=== PATIENT | female | born 1975 | race Caucasian/White ===

== ENCOUNTER 2017-04-08 09:19 | Emergency (ER) | payer OTHER, BC ==
[~2017-04-08] VITALS: Ht 182.9 cm; Wt 86.6 kg
[2017-04-08 10:30] LABS: BASO % 0 % (0-3); EOS # 0.1 x10^3/uL (0.0-0.7); EOS % 1 % (0-3); HEMATOCRIT 42.4 % (36.0-47.0); LYMPH # 2.5 x10^3/uL (1.0-4.8); LYMPH % 27 % (24-48); MEAN CORPUSCULAR HEMOGLOBIN 30 pg (25-35); MEAN CORPUSCULAR HGB CONC 35 g/dL (31-37); MEAN CORPUSCULAR VOLUME 85 fL (79-100); MONO # 0.5 x10^3/uL (0.0-1.1); MONO % 6 % (0-9); NEUT % 66 % (31-73); PLATELET COUNT 206 x10^3/uL (140-400); RED BLOOD COUNT 4.97 x10^6/uL (3.50-5.40); RED CELL DISTRIBUTION WIDTH 12.5 % (11.5-14.5); WHITE BLOOD COUNT 9.2 x10^3/uL (4.0-11.0)
[2017-04-08 10:34] LABS: PREG TEST PT QUAL NEGATIVE (NEG)
--- NOTE | 2017-04-08 10:34 | PHYS DOC ---
Past History Past Medical History: Diabetes Past Surgical History: Cholecystectomy, Other Alcohol Use: None Drug Use: None Adult General Chief Complaint Chief Complaint: BODY FLUID EXPOSURE [facility] HPI Patient is a pleasant 41-year-old male with history of diabetes and peripheral neuropathy who has actually fallen in human waste and sewage 2 days ago while at work. She has no complaints other than the exposure. Patient notes and small abrasions on her upper arms that are old and might need a tetanus shot. Denies any pain, denies any signs of infection, denies any shortness of breath abdominal pain or other complaint. Patient was sent here by her work for a screening exam secondary to bodily fluid exposure. 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 Review of Systems Review of Systems Constitutional: Denies fever or chills [] Eyes: Denies change in visual acuity, redness, or eye pain [] HENT: Denies nasal congestion or sore throat [] Respiratory: Denies cough or shortness of breath [] Cardiovascular: No additional information not addressed in HPI [] GI: Denies abdominal pain, nausea, vomiting, bloody stools or diarrhea [] : Denies dysuria or hematuria [] Musculoskeletal: Denies back pain or joint pain [] Integument: Denies rash or skin lesions [] Neurologic: Denies headache, focal weakness or sensory changes [] Endocrine: Denies polyuria or polydipsia [] Allergies Allergies Allergies Coded Allergies Type Severity Reaction Last Updated Verified iodine Allergy Unknown 04/08/17 Yes Physical Exam Physical Exam Constitutional: Well developed, well nourished, no acute distress, non-toxic appearance. [] HENT: Normocephalic, atraumatic, oropharynx moist, Eyes: PERRLA, EOMI, conjunctiva normal, no discharge. [] Neck: Normal range of motion, no tenderness, supple, no stridor. [] Cardiovascular:Heart rate regular rhythm, no murmur [] Lungs & Thorax: Bilateral breath sounds clear to auscultation [] Abdomen: Bowel sounds normal, soft, no tenderness, no masses, no pulsatile masses. [] Skin: Warm, dry, no erythema, no rash. Small abrasions well-healing on the forearms and hands. Nothing new. No signs of infection Back: No tenderness, no CVA tenderness. [] Extremities: No tenderness, no cyanosis, no clubbing, ROM intact, no edema. [] Neurologic: Alert and oriented X 3, normal motor function, normal sensory function, no focal deficits noted. [] Psychologic: Affect normal, judgement normal, mood normal. [] Current Patient Data Vital Signs Vital Signs Date Time Temp Pulse Resp B/P (MAP) Pulse Ox O2 Delivery O2 Flow Rate FiO2 04/08/17 09:37 98.5 105 18 96 Room Air EKG EKG [] Radiology/Procedures Radiology/Procedures [] Course & Med Decision Making Course & Med Decision Making Pertinent Labs and Imaging studies reviewed. (See chart for details) she noted to be mildly tachycardic on arrival also mildly anxious which is resolved with time. Nursing notes been reviewed and agree with above. Patient's exposure is minimal despite being exposed to human urine and feces there is the possibility of exposure to hepatitis and HIV with mucous members exposure. Given the duration of exposure patient had titers of hepatitis A, B, and C completed as well as HIV screening. Patient was encouraged to wash body with soap and water after exposure which she did 2 days ago. At this point in time she is needed no hepatitis vaccination is needed as she's had 2 courses in the last 10 years. 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 [] Dragon Disclaimer Dragon Disclaimer This chart was dictated in whole or in part using Voice Recognition software in a busy, high-work load, and often noisy Emergency Department environment. It may contain unintended and wholly unrecognized errors or omissions. Departure Departure: Impression: Primary Impression: Exposure to blood or body fluid Disposition: HOME, SELF-CARE Condition: IMPROVED Referrals: [facility] (PCP) Patient Instructions: Body Fluid Exposure Additional Instructions: During your possible wrist exposure to hepatitis A, B, and C I would advise that you follow-up with occupational health therapy organization associated with your employment please return for any questions or joint have. Any positive findings on laboratory work will be called in to directly. BRONSON CORREA MD April 08, 2017 10:34
[2017-04-08 10:38] LABS: ALBUMIN 3.3 g/dL (3.4-5.0); DIRECT BILIRUBIN 0.2 mg/dL (0.0-0.2); TOTAL BILIRUBIN 1.2 mg/dL (0.2-1.0); TOTAL PROTEIN 6.7 g/dL (6.4-8.2)
[2017-04-08 10:48] VITALS: BP 150/81
[2017-04-08 21:12] LABS: HCV ANTIBODY <0.1 s/co ratio (0.0-0.9); HEP A IGM ABDY Negative (Negative)
== END 2017-04-08 10:47 | disposition home or self-care (01) ==
LOC: ER 09:19
DX: Z77.21 Contact with and (suspected) exposure to potentially hazardous body fluids (principal); E11.42 Type 2 diabetes mellitus with diabetic polyneuropathy; Z91.041 Radiographic dye allergy status
CPT/HCPCS: 36415; 80074; 80076; 84703; 85027; 86703; 99284

== ENCOUNTER 2020-04-26 18:16 | Emergency (ER) | payer BC ==
[~2020-04-26] VITALS: Ht 182.9 cm; Wt 79.2 kg
--- NOTE | 2020-04-26 18:26 | PHYS DOC ---
Past History Past Medical History: Diabetes Past Surgical History: Cholecystectomy, Other Alcohol Use: None Drug Use: None General Adult EDM: Chief Complaint: MULTIPLE COMPLAINTS HPI: HPI: Patient is a 43-year-old female presenting to the ED with a chief complaint of right foot infection. Patient states that she is following up with wound care clinic and has been on IV antibiotics in the past. Patient states that she was on Levaquin in the past. Patient states that she had an MRI yesterday which showed that there is osteomyelitis that is spreading. Patient was sent into the ER for admission. Patient is a patient of Dr. Beltrán. Patient does admit to being an active smoker. Patient also does have history of diabetes. Currently patient denies fever, chills, nausea or vomiting. Review of Systems: Review of Systems: Constitutional: Denies fever or chills Eyes: Denies change in visual acuity HENT: Denies nasal congestion or sore throat Respiratory: Denies cough or shortness of breath Cardiovascular: Denies chest pain or edema GI: Denies abdominal pain, nausea, vomiting : Denies dysuria Musculoskeletal: Complains of pain and redness to the right foot Neurologic: Denies headache, focal weakness or sensory changes Heart Score: Risk Factors: Risk Factors: DM, Current or recent (<one month) smoker, HTN, HLP, family h istory of CAD, obesity. Risk Scores: Score 0 - 3: 2.5% MACE over next 6 weeks - Discharge Home Score 4 - 6: 20.3% MACE over next 6 weeks - Admit for Clinical Observation Score 7 - 10: 72.7% MACE over next 6 weeks - Early Invasive Strategies Allergies: Allergies: Allergies Coded Allergies Type Severity Reaction Last Updated Verified iodine Allergy Unknown Unknown 03/28/20 Yes Physical Exam: PE: Constitutional: Well developed, well nourished, no acute distress, non-toxic appearance. [] HENT: Normocephalic, atraumatic Eyes: EOMI Neck: Normal range of motion, Supple Cardiovascular: Taachycardia Lungs & Thorax: Bilateral breath sounds clear to auscultation [] Abdomen: Bowel sounds normal, soft, no tenderness Extremities: ROM intact, redness and tenderness to the right foot Neurologic: Alert and oriented X 3 EKG: EKG: [] Radiology/Procedures: Radiology/Procedures: [] Course & Med Decision Making: Course & Med Decision Making Pertinent Labs and Imaging studies reviewed. (See chart for details) Ordered labs, IV fluids Patient most likely has osteomyelitis. Did not order imaging as patient just had an MRI yesterday. IV antibiotics ordered and I will discuss with hospitalist service for admission. Discussed results and plan of care with patient. MRI results show that patient does have multifocal osteomyelitis. Also there is widening appearance of the Lisfranc interval as well as probable abscess between the first and second metatarsals. I discussed case with the hospitalist at [facility]. States that patient needs to be transferred to [place] as we do not have any surgical specialties. We have paged [facility] hospitalist to discuss case with them. Discussed case with Dr. Ramirez who accepts transfer. Tato Disclaimer: Tato Disclaimer: This electronic medical record was generated, in whole or in part, using a voice recognition dictation system. Departure Departure: Impression: Primary Impression: Osteomyelitis of foot, acute Disposition: 05 TRANSFER OTHER Condition: GOOD Referrals: PARMINDER ANTON MD (PCP) HERNIQUE LAMBERT DO Apr 26, 2020 18:26
[2020-04-26] MEDS ORDERED: IV NORMAL SALINE 1,000ML 1,000 ML IV ONE (18:45)
[2020-04-26 19:08] LABS: BASO # 0.1 x10^3/uL (0.0-0.2); BASO % 1 % (0-3); EOS # 0.1 x10^3/uL (0.0-0.7); EOS % 1 % (0-3); HEMATOCRIT 42.3 % (36.0-47.0); HEMOGLOBIN 14.5 g/dL (12.0-15.5); LYMPH # 2.3 x10^3/uL (1.0-4.8); LYMPH % 36 % (24-48); MEAN CORPUSCULAR HEMOGLOBIN 30 pg (25-35); MEAN CORPUSCULAR HGB CONC 34 g/dL (31-37); MEAN CORPUSCULAR VOLUME 88 fL (79-100); MONO # 0.5 x10^3/uL (0.0-1.1); MONO % 7 % (0-9); NEUT # 3.6 x10^3uL (1.8-7.7); NEUT % 55 % (31-73); PLATELET COUNT 281 x10^3/uL (140-400); RED CELL DISTRIBUTION WIDTH 12.4 % (11.5-14.5); WHITE BLOOD COUNT 6.6 x10^3/uL (4.0-11.0)
[2020-04-26 19:18] LABS: CALCIUM 9.3 mg/dL (8.5-10.1); CREATININE 0.8 mg/dL (0.6-1.0); GFR 77.9; POTASSIUM 4.2 mmol/L (3.5-5.1)
[2020-04-26 19:24] LABS: ALBUMIN 3.6 g/dL (3.4-5.0); ALBUMIN/GLOBULIN RATIO 0.9 (1.0-1.7); C REACTIVE PROTEIN 1.5 mg/L (0-3.3); TOTAL BILIRUBIN 0.6 mg/dL (0.2-1.0); TOTAL PROTEIN 7.7 g/dL (6.4-8.2)
[2020-04-26 21:02] VITALS: BP 124/73
[2020-04-26] MEDS ORDERED: PIP/TAZO PER PHARMACY MC PRN (22:45)
[2020-04-26] MEDS ORDERED: IV NORMAL SALINE 50ML 50 ML ONE (22:48)
[2020-04-26] MEDS ORDERED: PIPERACILLIN/TAZOBACTAM 3.375 GM VIAL IV ONE (22:48)
[2020-04-26] MEDS ORDERED: PIPERACILLIN/TAZOBACTAM 3.375 GM in IV NORMAL SALINE 50ML 50 ML IV ONE (23:00)
== END 2020-04-27 00:51 | disposition short-term general hospital (02) ==
LOC: ER 18:16
DX: M86.171 Other acute osteomyelitis, right ankle and foot (principal); E11.9 Type 2 diabetes mellitus without complications; Z88.8 Allergy status to other drugs, medicaments and biological substances
CPT/HCPCS: 36415; 80053; 85025; 86140; 96365; 99285; J2543; J7030

== ENCOUNTER 2020-05-14 11:15 | Inpatient (IN) | payer BC ==
[~2020-05-14] VITALS: Ht 182.9 cm; Wt 82.5 kg
[2020-05-14] MEDS ORDERED: PROCHLORPERAZINE 10 MG/2 ML VIAL. IV PRN (12:15)
[2020-05-14] MEDS ORDERED: DULO30CA2 PO (13:19)
[2020-05-14] MEDS ORDERED: ALPR0.5T6 PO (13:19)
[2020-05-14] MEDS ORDERED: TRAZ-120 PO (13:19)
[2020-05-14] MEDS ORDERED: ASPI-612 PO (13:20)
[2020-05-14] MEDS ORDERED: SITA1TAB7 PO (13:20)
[2020-05-14] MEDS: PROCHLORPERAZINE 10 MG/2 ML VIAL. IV PRN (14:31)
[2020-05-14] MEDS: IV NORMAL SALINE 1,000ML 1,000 ML IV SCH (14:32)
[2020-05-14 15:11] VITALS: BP 150/85
[2020-05-14 19:12] VITALS: BP 123/61
[2020-05-14] MEDS: ALPRAZolam 0.5 MG TABLET PO SCH (21:28)
[2020-05-14] MEDS: LISINOPRIL 10 MG TABLET PO SCH (21:28)
--- NOTE | 2020-05-14 22:06 | RAD ---
ACUTE ABDOMEN SERIES INDICATION: Reason: abd pain nausea vomiting / Spl. Instructions: / History: . COMPARISON STUDY: None. FINDINGS: Lungs: Normal lung volume. No pulmonary mass or consolidation. The tracheobronchial tree and hilar structures are normal. Pleura: No pleural effusion or pneumothorax. Heart and Mediastinum: The cardiomediastinal silhouette is normal. The great vessels of the thorax are normal. Abdomen: Nonobstructive bowel gas pattern. No free air. Mild colonic stool burden. IMPRESSION: Nonobstructive bowel gas pattern. No focal airspace disease. Electronically signed by: Daniel Fuller MD (05/14/2020 10:03 PM) [id number]
[2020-05-14 22:55] VITALS: BP 119/76
--- NOTE | 2020-05-14 22:57 | HP ---
ADMIT DATE: 05/14/2020 HISTORY OF PRESENT ILLNESS: A 44-year-old female who has recently been treated for osteomyelitis, possible Charcot joint, has severe diabetes. The patient, however, came in for some antibiotic therapy and was noted to have severe diarrhea, nausea, vomiting; uncontrolled nausea, unresponsive to oral Zofran. The patient in turn was doubled over in pain and as a result of this; she was admitted to the hospital for further evaluation and treatment of her nausea, vomiting, dehydration, diarrhea, abdominal discomfort. PAST MEDICAL HISTORY: As noted, she has been treated for diabetes as well as osteomyelitis of the right foot, possible Charcot joint. MEDICATIONS: Include aspirin 81, duloxetine, Cymbalta, trazodone 50, Xanax 0.25 and Janumet 50/500. ALLERGIES: IODINE. FAMILY HISTORY: Unremarkable. SOCIAL HISTORY: The patient has about a [id number] history of smoking. She has been encouraged numerous times to stop smoking. The patient also denies alcohol or drug use. REVIEW OF SYSTEMS: Outside of what was stated in the HPI, denies chest pain, shortness of breath. Denies abdominal pain except as otherwise noted here presently. The patient has no problem with her bladder, but does have severe diarrhea, shooting explosive type diarrhea. PHYSICAL EXAMINATION: GENERAL: This is a very pleasant female, except she is in extreme pain and discomfort, grimacing, holding her gut. VITAL SIGNS: Blood pressure 150/85, pulse 120, temperature 98.2, pulse ox 98. HEENT: The patient's head was atraumatic, normocephalic. Eyes: PERRLA without jaundice. The mouth and throat were normal except for dry mucous membranes. NECK: Supple, without JVD, carotid bruits or thyromegaly. LUNGS: Diminished throughout, poor movement of air. CARDIOVASCULAR: Regular sinus rhythm. ABDOMEN: Diffusely tender in the epigastric area. No rebounding, no guarding. Positive bowel sounds. EXTREMITIES: No clubbing, cyanosis, nor edema. NEUROLOGIC: The patient was alert and oriented x 3. LABORATORY DATA: The white count was elevated to 13,000. Other labs are still pending. C. diff ordered, fluids given. IMPRESSION: Nausea, vomiting, dehydration, type 2 diabetes, failure of outpatient therapy, possible osteomyelitis versus Charcot joint of the right foot, poorly controlled diabetes. PLAN: The patient will be continued to be monitored carefully here in the hospital, given IV fluids, IV antiemetics since oral antiemetics did not work, continue to monitor her foot and make further evaluation as indicated. PARMINDER ANTON MD DR: ARI/ursula JOB#: [id number] / [id number]
[2020-05-15] MEDS: IV NORMAL SALINE 1,000ML 1,000 ML IV SCH ×2 (00:41→06:09)
[2020-05-15 05:28] VITALS: BP 142/94
[2020-05-15] MEDS: MORPHINE SULFATE 2 MG/ML DISP.SYRIN. IV PRN ×2 (05:35→08:45)
[2020-05-15 08:21] LABS: BASO % 1 % (0-3); EOS % 1 % (0-3); HEMATOCRIT 34.1 % (36.0-47.0); HEMOGLOBIN 11.8 g/dL (12.0-15.5); LYMPH # 2.2 x10^3/uL (1.0-4.8); LYMPH % 27 % (24-48); MEAN CORPUSCULAR HEMOGLOBIN 30 pg (25-35); MEAN CORPUSCULAR HGB CONC 35 g/dL (31-37); MEAN CORPUSCULAR VOLUME 87 fL (79-100); MONO # 0.6 x10^3/uL (0.0-1.1); MONO % 7 % (0-9); NEUT # 5.3 x10^3uL (1.8-7.7); NEUT % 64 % (31-73); PLATELET COUNT 241 x10^3/uL (140-400); RED BLOOD COUNT 3.91 x10^6/uL (3.50-5.40); RED CELL DISTRIBUTION WIDTH 12.8 % (11.5-14.5); WHITE BLOOD COUNT 8.1 x10^3/uL (4.0-11.0)
[2020-05-15 08:26] LABS: CALCIUM 7.8 mg/dL (8.5-10.1); CREATININE 0.5 mg/dL (0.6-1.0); POTASSIUM 3.2 mmol/L (3.5-5.1)
[2020-05-15] MEDS: DULoxetine HCL 30 MG CAPSULE.DR PO SCH (08:41)
[2020-05-15] MEDS: ASPIRIN ENTERIC COATED 81 MG TABLET.DR. PO SCH (08:41)
[2020-05-15] MEDS: ALPRAZolam 0.5 MG TABLET PO SCH ×3 (08:41→20:58)
[2020-05-15] MEDS: LISINOPRIL 10 MG TABLET PO SCH (08:42)
[2020-05-15] MEDS: PROCHLORPERAZINE 10 MG/2 ML VIAL. IV PRN (08:45)
[2020-05-15 11:00] VITALS: BP 132/87
[2020-05-15] MEDS ORDERED: ELECTROLYTE (NON-ICU) PROTOCOL MC PRN (14:15)
[2020-05-15] MEDS ORDERED: DEXTROSE 50% 25 GM / 50ML DISP.SYRIN. IV PRN (14:30)
[2020-05-15] MEDS ORDERED: ACETAMINOPHEN 500 MG TABLET PO PRN (14:30)
[2020-05-15] MEDS ORDERED: ZOLPIDEM 5 MG TABLET. PO PRN (14:30)
[2020-05-15 14:36] LABS: ALBUMIN 2.8 g/dL (3.4-5.0); DIRECT BILIRUBIN 0.3 mg/dL (0.0-0.2)
[2020-05-15 14:38] LABS: TOTAL BILIRUBIN 2.6 mg/dL (0.2-1.0)
[2020-05-15 15:21] VITALS: BP 127/80
[2020-05-15] MEDS: INSULIN LISPRO 300 UNITS/3 ML VIAL. SQ SCH (17:00)
--- NOTE | 2020-05-15 18:01 | PN ---
DATE: SUBJECTIVE: A 44-year-old female with history of severe nausea, vomiting and diarrhea, acute abdominal pain, severe poorly controlled diabetes, possible osteomyelitis of the right foot which is Charcot. She has had osteomyelitis fissure. Her CRP is still elevated. She is doing better. We will just have her on clear liquids, IV fluids and adjusting her medications accordingly. OBJECTIVE: VITAL SIGNS: Otherwise, her blood pressure is 130/80, respiratory rate 18, pulse 86, afebrile, 98% on room air. GENERAL: The patient is alert and oriented. LUNGS: Clear. ABDOMEN: Diffuse tenderness in the epigastric area as well as noted in the suprapubic area as well. The patient's UA is pending. LABORATORY DATA: Did show a total bilirubin of 2.6, direct bilirubin of 0.3. Calcium low at 7.3, albumin low at 2.8, potassium low at 3.2, glucose is better than average for her approximately 130. Otherwise, lungs clear and stable there. PLAN: We will go ahead and get an abdominal ultrasound. We will put her on some electrolyte replacement. Continue to monitor this bilirubin. Monitor her diarrhea. IMPRESSION: Abdominal pain, dehydration, possible gastroparesis, possible C. difficile colitis, elevated liver enzymes, severe protein malnutrition, hyperbilirubinemia, elevated C-reactive protein, recent osteomyelitis of the right foot, Charcot joint of the right foot. PLAN: As above. PARMINDER ANTON MD DR: ARI/ursula JOB#: [id number] / [id number]
[2020-05-15 19:13] VITALS: BP 121/75
[2020-05-15 20:47] LABS: BACTERIA,URINE 0 /HPF (0-FEW); BILIRUBIN,URINE NEG (NEG); CLARITY,URINE CLEAR; COLOR,URINE YELLOW; GLUCOSE,URINE NEG (NEG); NITRITE,URINE NEG (NEG); RBC,URINE 0 /HPF (0-2); SQUAMOUS EPITHELIAL CELL,UR MANY /LPF; WBC,URINE OCC /HPF (0-4)
[2020-05-15 20:48] LABS: YEAST,URINE PRESENT /HPF
[2020-05-15 22:11] VITALS: BP 121/71
[2020-05-16 01:06] LABS: HEMOGLOBIN A1C 8.5 % (4.8-5.6)
[2020-05-16 05:33] VITALS: BP 123/75
[2020-05-16] MEDS: MORPHINE SULFATE 2 MG/ML DISP.SYRIN. IV PRN ×3 (06:08→23:27)
[2020-05-16] MEDS ORDERED: POTASSIUM CHLORIDE 20 MEQ TABLET.ER. PO ONE (07:30)
[2020-05-16] MEDS: INSULIN LISPRO 300 UNITS/3 ML VIAL. SQ SCH ×3 (08:00→16:27)
[2020-05-16] MEDS: ALPRAZolam 0.5 MG TABLET PO SCH ×3 (08:08→21:10)
[2020-05-16] MEDS: ASPIRIN ENTERIC COATED 81 MG TABLET.DR. PO SCH (08:08)
[2020-05-16] MEDS: LISINOPRIL 10 MG TABLET PO SCH (08:08)
[2020-05-16] MEDS: DULoxetine HCL 30 MG CAPSULE.DR PO SCH (08:08)
[2020-05-16] MEDS: PROCHLORPERAZINE 10 MG/2 ML VIAL. IV PRN (08:20)
--- NOTE | 2020-05-16 08:51 | RAD ---
ABDOMEN COMPLETE History: Elevated liver function tests, abdominal pain and nausea Comparison: None. Findings: Multiple sonographic images of the abdomen are submitted. There is no abnormality of the visualized pancreas. Abdominal aortic caliber is within normal limits up to 2.1 cm. There is segmental visualization of the inferior vena cava. No focal hepatic lesion is demonstrated. Right lobe of the liver measured 18.7 cm longitudinal. Hepatic echogenicity can be considered within normal limits. Right kidney measured 15 x 5.1 x 7.4 cm, no hydronephrosis. Common bile duct is somewhat prominent up to 0.9 cm although there has been cholecystectomy. Spleen measured up to 13.2 x 4.7 x 5.8 cm. Left kidney measured 14.9 x 5.6 x 6.6 cm, no hydronephrosis. Impression: 1. Common bile duct is somewhat prominent although sometimes can be normally seen after cholecystectomy. There is bilateral nephromegaly, no hydronephrosis. Electronically signed by: Daniel Thomson MD (05/16/2020 8:48 AM) [id number]
--- NOTE | 2020-05-16 09:38 | PN ---
DATE: SUBJECTIVE: A 44-year-old female here with nausea, vomiting and severe diarrhea, dehydration, elevated hyperbilirubinemia. The patient's abdominal ultrasound shows some enlargement of the common bile duct, otherwise unremarkable. Total bilirubin 2.6, direct bilirubin 0.3. Liver enzymes are normal. Albumin low at 2.8, potassium 3.2. Blood sugars under better control. The patient is still holding her belly with pain. We will go ahead and do a CAT scan and see if that will demonstrate why she is having so much abdominal pain. Abdominal ultrasound did not provide much in the way of answers. OBJECTIVE: LUNGS: Clear. CARDIOVASCULAR: Stable. ABDOMEN: Soft, diffuse tenderness in the right upper quadrant area, slight guarding. Otherwise, the belly was soft, no masses were noted. There was some tenderness in the suprapubic area as well. Again, no guarding, no masses noted. The patient's urine was unremarkable as well. IMPRESSION: Abdominal pain, right upper quadrant and lower pelvic area; hyperbilirubinemia; history of osteomyelitis; possible claudication or Charcot joint of the right foot; type 2 diabetes, poorly controlled. PARMINDER ANTON MD DR: ARI/ursula JOB#: [id number] / [id number]
[2020-05-16 10:14] VITALS: BP 129/81
--- NOTE | 2020-05-16 10:58 | RAD ---
EXAM: Abdomen and pelvis CT without intravenous contrast. HISTORY: Pain. TECHNIQUE: Computed tomographic images of the abdomen and pelvis were obtained without contrast. Multiplanar reformatting was performed. *One or more of the following individualized dose reduction techniques were utilized for this examination: 1. Automated exposure control. 2. Adjustment of the mA and/or kV according to patient size. 3. Use of iterative reconstruction technique. COMPARISON: None. FINDINGS: Evaluation of the lower thorax is unremarkable. No hepatic lesion is seen. The gallbladder is surgically absent. The pancreas is unremarkable. There is slight nodular thickening of the left adrenal gland or a small left adrenal adenoma. There is no hydronephrosis. There is no nephrolithiasis. There is no appendicitis. There is no bowel obstruction. There is colonic diverticulosis. There is focal fatty stranding involving the proximal to mid sigmoid colon, suggesting acute diverticulitis. No abscess or perforation is seen. The aorta is normal in caliber. There is no lymphadenopathy. The urinary bladder, uterus and right ovary are unremarkable. There is a suspected 1.3 cm physiologic dominant left ovarian follicle. There is degenerative change involving the spine. There is no suspicious osseous lesion. IMPRESSION: Colonic diverticulosis with focal fatty stranding at the junction of the proximal and mid sigmoid colon suggesting acute diverticulitis. No abscess or free air is seen. Electronically signed by: Gianna Caldwell MD (05/16/2020 10:55 AM) [id number]
--- NOTE | 2020-05-16 13:55 | RAD ---
EXAM: Right lower extremity arterial Doppler sonogram. HISTORY: Right lower extremity ulcer. TECHNIQUE: Beltrán scale and color Doppler sonographic imaging of the right lower extremity arteries with spectral waveform analysis was performed. COMPARISON: None. FINDINGS: There are normal peak systolic velocities and triphasic waveforms throughout the right lower extremity arteries. No hemodynamically significant stenosis or occlusion is seen. IMPRESSION: Normal right lower extremity arterial Doppler sonogram. Electronically signed by: Gianna Caldwell MD (05/16/2020 1:52 PM) [id number]
[2020-05-16 15:38] VITALS: BP 136/85
[2020-05-16 19:43] VITALS: BP 132/79
[2020-05-16] MEDS: LACTOBACILLUS RHAMNOSUS GG 1 CAPSULE. PO SCH (21:10)
[2020-05-16 23:23] VITALS: BP 124/79
[2020-05-17] MEDS: traZODone 50 MG TABLET. PO PRN ×2 (00:21→21:44)
[2020-05-17] MEDS: MORPHINE SULFATE 2 MG/ML DISP.SYRIN. IV PRN ×2 (05:23→22:54)
[2020-05-17 05:33] VITALS: BP 118/77
[2020-05-17 06:27] LABS: CALCIUM 8.3 mg/dL (8.5-10.1); CREATININE 0.5 mg/dL (0.6-1.0); POTASSIUM 3.4 mmol/L (3.5-5.1)
[2020-05-17] MEDS: INSULIN LISPRO 300 UNITS/3 ML VIAL. SQ SCH ×3 (08:00→17:00)
[2020-05-17] MEDS: ALPRAZolam 0.5 MG TABLET PO SCH ×3 (08:14→21:44)
[2020-05-17] MEDS: LACTOBACILLUS RHAMNOSUS GG 1 CAPSULE. PO SCH ×2 (08:15→21:44)
[2020-05-17] MEDS: DULoxetine HCL 30 MG CAPSULE.DR PO SCH (08:15)
[2020-05-17] MEDS: ASPIRIN ENTERIC COATED 81 MG TABLET.DR. PO SCH (08:16)
[2020-05-17] MEDS: LISINOPRIL 10 MG TABLET PO SCH (08:16)
--- NOTE | 2020-05-17 09:27 | PN ---
DATE: SUBJECTIVE: The patient came in with nausea and vomiting. The patient is being treated for possible osteomyelitis with daptomycin 6 mg daily and Invanz [address] Dietrich. The patient, however, developed diverticulitis and has had good relief with Levaquin and Flagyl regimen. In the meantime, her other antibiotics have been stopped and that in turn the right foot appears to be more swollen and red today, so sugars are down. C. diff was negative. She is still having some diarrhea. We will discuss with pharmacy to determine the best course here for IV antibiotic therapy. I would like to restart her on either the daptomycin or Invanz and discontinue one of the other antibiotics, but since she was already on those and developed diverticulitis, it is somewhat of a conundrum there. PHYSICAL EXAMINATION: VITAL SIGNS: Blood pressure 120/70, respiratory rate 18, pulse 60, afebrile. GENERAL: The patient is alert and oriented. LUNGS: Clear. CARDIOVASCULAR: Stable. ABDOMEN: Diffuse tenderness in the lower suprapubic area and left lower quadrant area, slight guarding, no rebounding. Positive bowel sounds, no hepatosplenomegaly. IMPRESSION: Diverticulitis, osteomyelitis of the right foot, diarrhea. Continue to monitor accordingly. PARMINDER ANTON MD DR: ARI/ursula JOB#: [id number] / [id number]
[2020-05-17 10:38] VITALS: BP 129/83
[2020-05-17 16:55] VITALS: BP 144/87
[2020-05-17 19:32] VITALS: BP 128/82
[2020-05-18 06:03] LABS: BASO % 1 % (0-3); EOS # 0.2 x10^3/uL (0.0-0.7); EOS % 3 % (0-3); HEMATOCRIT 35.9 % (36.0-47.0); HEMOGLOBIN 12.3 g/dL (12.0-15.5); LYMPH # 2.2 x10^3/uL (1.0-4.8); LYMPH % 32 % (24-48); MEAN CORPUSCULAR HEMOGLOBIN 30 pg (25-35); MEAN CORPUSCULAR HGB CONC 34 g/dL (31-37); MEAN CORPUSCULAR VOLUME 87 fL (79-100); MONO # 0.5 x10^3/uL (0.0-1.1); MONO % 7 % (0-9); NEUT % 58 % (31-73); PLATELET COUNT 254 x10^3/uL (140-400); RED BLOOD COUNT 4.13 x10^6/uL (3.50-5.40); RED CELL DISTRIBUTION WIDTH 12.8 % (11.5-14.5); WHITE BLOOD COUNT 6.9 x10^3/uL (4.0-11.0)
[2020-05-18 06:41] VITALS: BP 144/80
[2020-05-18] MEDS: DULoxetine HCL 30 MG CAPSULE.DR PO SCH (07:55)
[2020-05-18] MEDS: LISINOPRIL 10 MG TABLET PO SCH (07:56)
[2020-05-18] MEDS: LACTOBACILLUS RHAMNOSUS GG 1 CAPSULE. PO SCH (07:56)
[2020-05-18] MEDS: ASPIRIN ENTERIC COATED 81 MG TABLET.DR. PO SCH (07:56)
[2020-05-18] MEDS: ALPRAZolam 0.5 MG TABLET PO SCH (07:56)
[2020-05-18] MEDS: INSULIN LISPRO 300 UNITS/3 ML VIAL. SQ SCH (08:02)
[2020-05-18 10:16] VITALS: BP 135/79
[2020-05-18] MEDS ORDERED: METR-34 PO (11:20)
[2020-05-18] MEDS ORDERED: LISI10TA2 PO (11:20)
--- NOTE | 2020-05-18 13:03 | DS ---
DATE OF DISCHARGE: HOSPITAL COURSE: The patient was coming in to get IV antibiotic therapy, daptomycin and Invanz for osteomyelitis of her right foot; however, when she was here she began to have severe nausea, vomiting and abdominal pain. She was admitted and workup demonstrated the patient had diverticulitis, so we started her on Levaquin and Flagyl. She made good progress with the diverticulitis. She will continue on Flagyl. She is to see Dr. Dietrich, her Infectious Disease doctor for the osteomyelitis and control of that; however, the patient is having trouble with her blood sugars. She is a diabetic. She is not watching her diet very well. Her A1c has been 8-9 or higher and obviously this is contributing to her vascular problems as well. She is also to see Orthopedics as well as a bone specialist of the feet. She may have Charcot joint versus osteomyelitis or possibly both for that matter. The patient will be discharged home. She will follow up with her Infectious Disease doctor and also Dr. Spann for her feet. She needs tight control of her diabetes and we will continue to monitor on all those elements as well. IMPRESSION: Diverticulitis, osteomyelitis, nausea, vomiting, dehydration. She was unable to keep oral medications down when she first came in and that is why she was admitted. We will continue to monitor her as an outpatient and ____ to keep up with her other appointments. She should be on a tight diabetic diet, marked control of her situation there with all her other medical issues. PARMINDER ANTON MD DR: ARI/ursula JOB#: [id number] / [id number]
== END 2020-05-18 11:55 | disposition home or self-care (01) | DRG 391 ==
LOC: 1 SOUTH 11:15
PROVIDERS: ADMIT Family Medicine; ATTEND Family Medicine
DX: K57.92 Diverticulitis of intestine, part unspecified, without perforation or abscess without bleeding (principal); E43 Unspecified severe protein-calorie malnutrition; M86.8X7 Other osteomyelitis, ankle and foot; R17 Unspecified jaundice; E11.610 Type 2 diabetes mellitus with diabetic neuropathic arthropathy; E11.69 Type 2 diabetes mellitus with other specified complication; E86.0 Dehydration; E11.65 Type 2 diabetes mellitus with hyperglycemia; Z87.891 Personal history of nicotine dependence; Z91.041 Radiographic dye allergy status; Z79.82 Long term (current) use of aspirin; Z79.899 Other long term (current) drug therapy; Z68.24 Body mass index [BMI] 24.0-24.9, adult
CPT/HCPCS: 36415; 74022; 74176; 76700; 80048; 80076; 81001; 82947; 83036; 85025; 86140; 87493; 93926; J0780; J1815; J1956; J2270; J3490; J7030

== ENCOUNTER → 2020-05-25 | Outpatient (CLI) | payer BC ==
[~2020-05-25] MED LIST: ALPR0.5T6 PO; ASPI-612 PO; DULO30CA2 PO; LISI10TA2 PO; METR-34 PO; SITA1TAB7 PO; TRAZ-120 PO
[2020-05-25 16:52] VITALS: BP 117/85
--- NOTE | 2020-05-25 16:54 | NUR ---
Pt amb to unit. Pt has labs ordered from her ortho doctor. Picc flushed with 20 cc NS then 10cc pulled back and wasted and blood drawn. Labs will be sent to ordering doctor. Infusion running with ease.
[2020-05-25 16:58] LABS: BASO # 0.1 x10^3/uL (0.0-0.2); BASO % 1 % (0-3); EOS # 0.2 x10^3/uL (0.0-0.7); EOS % 2 % (0-3); HEMATOCRIT 40.7 % (36.0-47.0); LYMPH # 2.7 x10^3/uL (1.0-4.8); LYMPH % 30 % (24-48); MEAN CORPUSCULAR HEMOGLOBIN 30 pg (25-35); MEAN CORPUSCULAR HGB CONC 34 g/dL (31-37); MEAN CORPUSCULAR VOLUME 87 fL (79-100); MONO # 0.7 x10^3/uL (0.0-1.1); MONO % 8 % (0-9); NEUT # 5.4 x10^3uL (1.8-7.7); NEUT % 60 % (31-73); PLATELET COUNT 242 x10^3/uL (140-400); RED BLOOD COUNT 4.66 x10^6/uL (3.50-5.40)
== END ==
LOC: LAB 16:14
PROVIDERS: ATTEND Orthopaedic Surgery Foot and Ankle Surgery
DX: M25.571 Pain in right ankle and joints of right foot (principal); R26.2 Difficulty in walking, not elsewhere classified; M14.671 Charcot's joint, right ankle and foot
CPT/HCPCS: 36415; 82306; 85025; 86140

== ENCOUNTER 2020-06-23 23:54 | Inpatient (IN) | payer BC ==
[~2020-06-23] VITALS: Ht 182.9 cm; Wt 83.2 kg
[~2020-06-23 23:54] MED LIST changes: -ASPI-612 PO; +ASPI-889 PO
--- NOTE | 2020-06-24 00:25 | PHYS DOC ---
Past History Past Medical History: Diabetes, Hypertension Past Surgical History: Cholecystectomy, Other Alcohol Use: None Drug Use: None General Adult EDM: Chief Complaint: ABDOMINAL PAIN HPI: HPI: Patient is a 44-year-old female who presents with 2 days of epigastric pain and nausea and vomiting. Had some diarrhea with the vomiting. Patient denies any measurable fever. Patient has crampy abdominal pain starts in the umbilicus and radiates upward. Epigastric area. Pain 8 out of 10 in intensity and worse with eating and sharp and stabbing. Patient was admitted for similar symptoms last month. Review of Systems: Review of Systems: Constitutional: Denies fever or chills Eyes: Denies change in visual acuity HENT: Denies nasal congestion or sore throat Respiratory: Denies cough or shortness of breath Cardiovascular: Denies chest pain or edema GI: Complains of abdominal pain, nausea, vomiting, or diarrhea : Denies dysuria Musculoskeletal: Denies back pain or joint pain Integument: Denies rash Neurologic: Denies headache, focal weakness or sensory changes Endocrine: Denies polyuria or polydipsia Lymphatic: Denies swollen glands Psychiatric: Denies depression or anxiety Heart Score: Risk Factors: Risk Factors: DM, Current or recent (<one month) smoker, HTN, HLP, family history of CAD, obesity. Risk Scores: Score 0 - 3: 2.5% MACE over next 6 weeks - Discharge Home Score 4 - 6: 20.3% MACE over next 6 weeks - Admit for Clinical Observation Score 7 - 10: 72.7% MACE over next 6 weeks - Early Invasive Strategies Current Medications: Current Meds: Current Medications Medications (Trade) Dose Ordered Sig/[place] Start Time Stop Time Status Last Admin Dose Admin Metoclopramide HCl (Reglan Vial) 10 mg 1X ONCE 06/24/20 00:30 06/24/20 00:31 Ondansetron HCl (Zofran) 4 mg 1X ONCE 06/24/20 00:30 06/24/20 00:31 Sodium Chloride 1,000 ml @ 1,000 mls/hr Q1H 06/24/20 00:30 06/24/20 01:29 Allergies: Allergies: Allergies Coded Allergies Type Severity Reaction Last Updated Verified iodine Allergy Severe 06/24/20 Yes Physical Exam: PE: Constitutional: Well developed, well nourished, anxious HENT: Normocephalic, atraumatic, bilateral external ears normal, no trismus nose normal. []dry oral mucosa Eyes: PERRLA, EOMI, conjunctiva normal, no discharge. [] Neck: Normal range of motion, no tenderness, supple, no stridor. [] Cardiovascular: Tachycardic, peripheral pulses intact, cap refill intact Lungs & Thorax: No respiratory distress Abdomen: soft, tenderness periumbilical and epigastric, no guarding or rebound, no masses, no pulsatile masses. [] Skin: Warm, dry, no erythema, no rash. [] Back: No tenderness, no CVA tenderness. [] Extremities: No tenderness, no cyanosis, no clubbing, ROM intact, no edema. [boot on right foot] Neurologic: Alert and oriented X 3, normal motor function, normal sensory fu nction, no focal deficits noted. [] Psychologic: Affect normal, judgement normal, mood normal. [] Current Patient Data: Labs: Laboratory Tests Test 06/24/20 00:32 06/24/20 00:45 Urine Collection Type Unknown Urine Color Yellow Urine Clarity Hazy Urine pH 5.5 Urine Specific [place] >=1.030 Urine Protein 100 mg/dl Urine Glucose (UA) Neg mg/dL Urine Ketones (Stick) >=160 mg/dL Urine Blood Large Urine Nitrite Neg Urine Bilirubin Neg Urine Urobilinogen Dipstick 0.2 mg/dL Urine Leukocyte Esterase Neg Urine RBC 11-20 /HPF Urine WBC Occ /HPF Urine Squamous Epithelial Cells Mod /LPF Urine Bacteria 0 /HPF Urine Mucus Mod /LPF White Blood Count 11.9 x10^3/uL Red Blood Count 4.61 x10^6/uL Hemoglobin 13.8 g/dL Hematocrit 40.0 % Mean Corpuscular Volume 87 fL Mean Corpuscular Hemoglobin 30 pg Mean Corpuscular Hemoglobin Concent 35 g/dL Red Cell Distribution Width 12.7 % Platelet Count 248 x10^3/uL Neutrophils (%) (Auto) 87 % Lymphocytes (%) (Auto) 9 % Monocytes (%) (Auto) 3 % Eosinophils (%) (Auto) 0 % Basophils (%) (Auto) 0 % Neutrophils # (Auto) 10.4 x10^3uL Lymphocytes # (Auto) 1.1 x10^3/uL Monocytes # (Auto) 0.4 x10^3/uL Eosinophils # (Auto) 0.0 x10^3/uL Basophils # (Auto) 0.0 x10^3/uL Segmented Neutrophils % 87 % Band Neutrophils % 1 % Lymphocytes % 9 % Monocytes % 2 % Eosinophils % 1 % Platelet Estimate Adequate Sodium Level 135 mmol/L Potassium Level 3.6 mmol/L Chloride Level 96 mmol/L Carbon Dioxide Level 22 mmol/L Anion Gap 17 Blood Urea Nitrogen 25 mg/dL Creatinine 0.8 mg/dL Estimated GFR (Cockcroft-Gault) 77.9 BUN/Creatinine Ratio 31 Glucose Level 283 mg/dL Calcium Level 9.3 mg/dL Total Bilirubin 1.9 mg/dL Aspartate Amino Transf (AST/SGOT) 12 U/L Alanine Aminotransferase (ALT/SGPT) 20 U/L Alkaline Phosphatase 61 U/L Total Protein 8.0 g/dL Albumin 4.2 g/dL Albumin/Globulin Ratio 1.1 Lipase 71 U/L Serum Test, Qualitative Negative Current Medications Medications (Trade) Dose Ordered Sig/[place] Route PRN Reason Start Time Stop Time Status Last Admin Dose Admin Sodium Chloride 1,000 ml @ 1,000 mls/hr Q1H IV 06/24/20 00:30 06/24/20 01:30 DC 06/24/20 00:42 Ondansetron HCl (Zofran) 4 mg 1X ONCE IVP 06/24/20 00:30 06/24/20 00:31 DC 06/24/20 00:42 Metoclopramide HCl (Reglan Vial) 10 mg 1X ONCE IVP 06/24/20 00:30 06/24/20 00:31 DC 06/24/20 00:42 Vital Signs: Vital Signs Date Time Temp Pulse Resp B/P (MAP) Pulse Ox O2 Delivery O2 Flow Rate FiO2 06/24/20 00:09 98.0 110 20 138/73 (94) 99 Room Air EKG: EKG: [] Radiology/Procedures: Radiology/Procedures: [][address] [address] IMAGING REPORT Signed PATIENT: LATONIA ESPARZA ACCOUNT: [id number] : 1975 LOCATION: ER AGE: 44 SEX: F EXAM STATUS: REG ER ORD. PHYSICIAN: SULTANA BARNES MD REASON: Lower abdomen pain n/v. Hx: Cholcystectomy PROCEDURE: CT ABDOMEN PELVIS WO CONTRAST CT abdomen and pelvis without contrast: Reason for examination: Low abdominal pain with nausea and vomiting. Comparison is made to previous study dated 05/16/2020. Helical images were obtained through the abdomen and pelvis with no intravenous or oral contrast administered. Reconstruction was performed in sagittal and coronal planes. Exposure: One or more of the following individualized dose reduction techniques were utilized for this examination: 1. Automated exposure control 2. Adjustment of the mA and/or kV according to patient size 3. Use of iterative reconstruction technique. The lung bases show a small nodule probably representing a granuloma measuring 4.2 mm in size laterally at the right lower lobe. No other infiltrates or pleural effusions are seen. The heart size is normal with no pericardial effusion. No abnormality seen at the liver, spleen, adrenal glands or pancreas. The gallbladder surgically absent. The abdominal aorta and inferior vena cava show no acute abnormalities. There are scattered diverticuli throughout the colon consistent with diverticulosis but there is one diverticulum in the sigmoid colon measuring approximately 2 cm in size which shows some mild adjacent stranding. This could reflect diverticulitis.. The small intestinal tract shows no abnormal dilatation, wall thickening or evidence of obstruction. There is gastric content but no wall thickening or obstruction. The kidneys show no renal masses, renal calculi, hydronephrosis or evidence of obstructive uropathy. No abnormality seen at the bladder, uterus or ovaries. No free fluid or free air seen in the abdomen or pelvis. No acute bony abnormalities are seen. IMPRESSION: Multiple diverticuli throughout the colon but there is a 2 cm diverticulum in the sigmoid colon with some minimal adjacent stranding which could reflect diverticulitis. Electronically signed by: Candace Guerrero MD (06/24/2020 2:10 AM) [id number] DICTATED AND SIGNED BY: CANDACE GUERRERO MD DATE: 06/24/200 CC: SULTANA BARNES MD; PARMINDER ANTON MD ~ Course & Med Decision Making: Course & Med Decision Making Pertinent Labs and Imaging studies reviewed. (See chart for details) [] 44-year-old female presents with nausea vomiting. Patient is quite dehydrated on her exam and laboratory assessment. CT shows possible mild diverticulitis. Patient will need be admitted for IV antibiotics and fluids. Patient improved on reassessment but symptoms returned so will need to be remedicated. D/W Dr. Anton who will admit MIPS: HCG CHECKED AND NEGATIVE Dragon Disclaimer: Tato Disclaimer: This electronic medical record was generated, in whole or in part, using a voice recognition dictation system. Departure Departure: Impression: Primary Impression: Diverticulitis large intestine Additional Impressions: Dehydration Abdominal pain Disposition: ADMITTED INPATIENT Condition: STABLE Referrals: PARMINDER ANTON MD (PCP) Justification of Admission: Justification of Admission: Justification of Admission Dx: Yes SULTANA BARNES MD Jun 24, 2020 00:25
[2020-06-24] MEDS ORDERED: ONDANSETRON PF 4 MG/2 ML VIAL. IVP ONE ×2 (00:30→03:00)
[2020-06-24] MEDS ORDERED: METOCLOPRAMIDE HCL 10 MG/2 ML VIAL. IVP ONE (00:30)
[2020-06-24] MEDS ORDERED: IV NORMAL SALINE 1,000ML 1,000 ML IV SCH (00:30)
[2020-06-24 01:08] LABS: BASO % 0 % (0-3); EOS % 0 % (0-3); HEMOGLOBIN 13.8 g/dL (12.0-15.5); LYMPH # 1.1 x10^3/uL (1.0-4.8); LYMPH % 9 % (24-48); MEAN CORPUSCULAR HEMOGLOBIN 30 pg (25-35); MEAN CORPUSCULAR HGB CONC 35 g/dL (31-37); MEAN CORPUSCULAR VOLUME 87 fL (79-100); MONO # 0.4 x10^3/uL (0.0-1.1); MONO % 3 % (0-9); NEUT # 10.4 x10^3uL (1.8-7.7); NEUT % 87 % (31-73); PLATELET COUNT 248 x10^3/uL (140-400); RED BLOOD COUNT 4.61 x10^6/uL (3.50-5.40); RED CELL DISTRIBUTION WIDTH 12.7 % (11.5-14.5); WHITE BLOOD COUNT 11.9 x10^3/uL (4.0-11.0)
[2020-06-24 01:14] LABS: BACTERIA,URINE 0 /HPF (0-FEW); BILIRUBIN,URINE NEG (NEG); CLARITY,URINE HAZY; COLOR,URINE YELLOW; GLUCOSE,URINE NEG (NEG); NITRITE,URINE NEG (NEG); UROBILINOGEN,URINE 0.2 mg/dL (0.2 mg/dL); WBC,URINE OCC /HPF (0-4)
[2020-06-24 01:15] LABS: SQUAMOUS EPITHELIAL CELL,UR MOD /LPF
[2020-06-24 01:16] LABS: CALCIUM 9.3 mg/dL (8.5-10.1); CREATININE 0.8 mg/dL (0.6-1.0); GFR 77.9; POTASSIUM 3.6 mmol/L (3.5-5.1)
[2020-06-24 01:17] LABS: PREG TEST PT QUAL NEGATIVE (NEG)
[2020-06-24 01:22] LABS: ALBUMIN 4.2 g/dL (3.4-5.0); ALBUMIN/GLOBULIN RATIO 1.1 (1.0-1.7); TOTAL BILIRUBIN 1.9 mg/dL (0.2-1.0)
[2020-06-24 01:30] LABS: % BANDS 1 % (0-9); % EOS 1 % (0-5); % LYMPHS 9 % (24-48); % MONOS 2 % (0-10); % SEGS 87 % (35-66); PLT ESTIMATE ADEQUATE (ADEQUATE)
--- NOTE | 2020-06-24 02:12 | RAD ---
CT abdomen and pelvis without contrast: Reason for examination: Low abdominal pain with nausea and vomiting. Comparison is made to previous study dated 05/16/2020. Helical images were obtained through the abdomen and pelvis with no intravenous or oral contrast administered. Reconstruction was performed in sagittal and coronal planes. Exposure: One or more of the following individualized dose reduction techniques were utilized for this examination: 1. Automated exposure control 2. Adjustment of the mA and/or kV according to patient size 3. Use of iterative reconstruction technique. The lung bases show a small nodule probably representing a granuloma measuring 4.2 mm in size laterally at the right lower lobe. No other infiltrates or pleural effusions are seen. The heart size is normal with no pericardial effusion. No abnormality seen at the liver, spleen, adrenal glands or pancreas. The gallbladder surgically absent. The abdominal aorta and inferior vena cava show no acute abnormalities. There are scattered diverticuli throughout the colon consistent with diverticulosis but there is one diverticulum in the sigmoid colon measuring approximately 2 cm in size which shows some mild adjacent stranding. This could reflect diverticulitis.. The small intestinal tract shows no abnormal dilatation, wall thickening or evidence of obstruction. There is gastric content but no wall thickening or obstruction. The kidneys show no renal masses, renal calculi, hydronephrosis or evidence of obstructive uropathy. No abnormality seen at the bladder, uterus or ovaries. No free fluid or free air seen in the abdomen or pelvis. No acute bony abnormalities are seen. IMPRESSION: Multiple diverticuli throughout the colon but there is a 2 cm diverticulum in the sigmoid colon with some minimal adjacent stranding which could reflect diverticulitis. Electronically signed by: Candace Donnelly MD (06/24/2020 2:10 AM) [id number]
[2020-06-24] MEDS ORDERED: ONDANSETRON PF 4 MG/2 ML VIAL. IVP PRN (02:30)
[2020-06-24] MEDS: IV NORMAL SALINE 1,000ML 1,000 ML IV SCH ×3 (02:51→14:14)
[2020-06-24] MEDS ORDERED: MORPHINE SULFATE 4 MG/ML DISP.SYRIN. IV ONE (03:00)
[2020-06-24 03:58] VITALS: BP 130/79
--- NOTE | 2020-06-24 04:35 | NUR ---
The patient, LATONIA ESPARZA, 44 y/o, F admitted by PARMINDER ANTON MD, was given written information regarding hospital policies, unit procedures and contact persons. Health history and home medications were reviewed with patient. Bed locked and in lowest position, call light within reach. Valuables were checked and left in room.
[2020-06-24 05:30] VITALS: BP 137/86
[2020-06-24] MEDS ORDERED: PIP/TAZO PER PHARMACY MC PRN (08:30)
[2020-06-24] MEDS ORDERED: MORPHINE SULFATE 4 MG/ML DISP.SYRIN. IV PRN (08:30)
[2020-06-24] MEDS ORDERED: DEXTROSE 50% 25 GM / 50ML DISP.SYRIN. IV PRN ×2 (08:30→09:45)
[2020-06-24] MEDS: PIPERACILLIN/TAZOBACTAM 3.375 GM in IV NORMAL SALINE 50ML 50 ML IV SCH ×2 (09:00→09:04)
[2020-06-24] MEDS: LACTOBACILLUS RHAMNOSUS GG 1 CAPSULE. PO SCH ×2 (09:00→21:00)
[2020-06-24] MEDS ORDERED: traZODone 50 MG TABLET. PO PRN (09:15)
[2020-06-24] MEDS: LISINOPRIL 10 MG TABLET PO SCH (09:30)
[2020-06-24] MEDS: metFORMIN 500 MG TABLET PO SCH ×2 (09:30→16:34)
[2020-06-24] MEDS: DULoxetine HCL 30 MG CAPSULE.DR PO SCH (09:30)
[2020-06-24] MEDS: LINAGLIPTIN 5 MG TABLET PO SCH (09:30)
[2020-06-24] MEDS: PROCHLORPERAZINE 10 MG/2 ML VIAL. IV PRN (10:56)
[2020-06-24 11:26] VITALS: BP 109/66
[2020-06-24] MEDS: INSULIN LISPRO 300 UNITS/3 ML VIAL. SQ SCH ×2 (12:00→16:34)
[2020-06-24] MEDS ORDERED: INSULIN LISPRO 300 UNITS/3 ML VIAL. SQ SCH (12:00)
[2020-06-24] MEDS ORDERED: metroNIDAZOLE 500 MG TABLET PO SCH ×2 (14:00)
[2020-06-24 15:00] VITALS: BP 117/84
--- NOTE | 2020-06-24 17:40 | NUR ---
NURSING NOTE PT HAS BEEN SLEEPING MOST OF THE DAY, DID COMPLAIN OF PAIN THIS AM, 1X ORDER FOR MORPHINE GIVEN. PT C/O NAUSEA THIS AM, HAD ALREADY BEEN GIVEN ZOFRAN, DR ANTON NOTIFIED. ORDER FOR PRN COMPIZINE OBTAINED AND ADMINISTERED, PT GIVEN SOME RELIEF. PT CURRENTLY ON LEVAQUIN 500 DAILY AND METRONIDAZOLE 500 Q8 FOR DIVERTICULITIS. PT REFUSED METFORMIN STATING THAT SHE DOES NOT WANT TO TAKE ANY ORAL MEDICATION AT THIS TIME. SLIDING SCALE ON ORDER IF NEEDED. WILL CONTINUE TO MONITOR. FIDENCIO ALTMAN.
[2020-06-24] MEDS ORDERED: METFORMIN HCL PO SCH (21:00)
[2020-06-24] MEDS ORDERED: SITAGLIPTIN PHOS PO SCH (21:00)
[2020-06-25 00:22] VITALS: BP 120/73
[2020-06-25] MEDS: IV NORMAL SALINE 1,000ML 1,000 ML IV SCH (04:02)
[2020-06-25 06:52] VITALS: BP 132/76
[2020-06-25] MEDS: INSULIN LISPRO 300 UNITS/3 ML VIAL. SQ SCH ×3 (08:00→17:00)
[2020-06-25] MEDS: ASPIRIN ENTERIC COATED 81 MG TABLET.DR. PO SCH (08:19)
[2020-06-25] MEDS: metFORMIN 500 MG TABLET PO SCH ×2 (08:19→16:35)
[2020-06-25] MEDS: LINAGLIPTIN 5 MG TABLET PO SCH (08:19)
[2020-06-25] MEDS: LACTOBACILLUS RHAMNOSUS GG 1 CAPSULE. PO SCH ×2 (08:19→20:27)
[2020-06-25] MEDS: LISINOPRIL 10 MG TABLET PO SCH (08:19)
[2020-06-25] MEDS: DULoxetine HCL 30 MG CAPSULE.DR PO SCH (08:19)
[2020-06-25 09:59] LABS: BASO % 0 % (0-3); EOS # 0.1 x10^3/uL (0.0-0.7); EOS % 1 % (0-3); HEMATOCRIT 34.2 % (36.0-47.0); HEMOGLOBIN 12.1 g/dL (12.0-15.5); LYMPH # 1.8 x10^3/uL (1.0-4.8); LYMPH % 27 % (24-48); MEAN CORPUSCULAR HEMOGLOBIN 30 pg (25-35); MEAN CORPUSCULAR HGB CONC 36 g/dL (31-37); MEAN CORPUSCULAR VOLUME 85 fL (79-100); MONO # 0.4 x10^3/uL (0.0-1.1); MONO % 6 % (0-9); NEUT # 4.4 x10^3uL (1.8-7.7); NEUT % 66 % (31-73); PLATELET COUNT 210 x10^3/uL (140-400); RED BLOOD COUNT 4.03 x10^6/uL (3.50-5.40); RED CELL DISTRIBUTION WIDTH 12.7 % (11.5-14.5); WHITE BLOOD COUNT 6.7 x10^3/uL (4.0-11.0)
[2020-06-25 10:08] LABS: CALCIUM 8.1 mg/dL (8.5-10.1); CREATININE 0.6 mg/dL (0.6-1.0); GFR 108.6; POTASSIUM 3.3 mmol/L (3.5-5.1)
[2020-06-25 11:00] VITALS: BP 130/78
[2020-06-25] MEDS: ACETAMINOPHEN 500 MG TABLET PO PRN (14:46)
[2020-06-25 15:49] VITALS: BP 122/72
[2020-06-25] MEDS: ALPRAZolam 0.5 MG TABLET PO PRN (16:46)
[2020-06-25 19:15] VITALS: BP 111/65
--- NOTE | 2020-06-25 19:30 | NUR ---
At shift pt is laying in bed. Pt denies pain and nausea at this time. Pt given PRN Trazodone per pt request. Pt hopeful to be able to go home tomorrow.
[2020-06-25 22:33] VITALS: BP 124/68
[2020-06-26] MEDS: ACETAMINOPHEN 500 MG TABLET PO PRN ×2 (01:49→08:16)
[2020-06-26 05:40] VITALS: BP 123/74
[2020-06-26 07:42] LABS: CALCIUM 8.1 mg/dL (8.5-10.1); CREATININE 0.6 mg/dL (0.6-1.0); GFR 108.6
[2020-06-26 07:47] LABS: POTASSIUM 2.9 mmol/L (3.5-5.1)
[2020-06-26] MEDS: INSULIN LISPRO 300 UNITS/3 ML VIAL. SQ SCH ×2 (08:00→12:01)
[2020-06-26] MEDS: POTASSIUM CHLORIDE 10MEQ 100 ML IV SCH ×4 (08:09→11:00)
[2020-06-26] MEDS: POTASSIUM BICARB 20 MEQ EFFERVESCENT TABLET. PO SCH ×2 (08:09→12:00)
[2020-06-26] MEDS: LINAGLIPTIN 5 MG TABLET PO SCH (08:10)
[2020-06-26] MEDS: LISINOPRIL 10 MG TABLET PO SCH (08:10)
[2020-06-26] MEDS: ASPIRIN ENTERIC COATED 81 MG TABLET.DR. PO SCH (08:10)
[2020-06-26] MEDS: DULoxetine HCL 30 MG CAPSULE.DR PO SCH (08:10)
[2020-06-26] MEDS: LACTOBACILLUS RHAMNOSUS GG 1 CAPSULE. PO SCH (08:10)
[2020-06-26] MEDS: metFORMIN 500 MG TABLET PO SCH (08:10)
[2020-06-26] MEDS: PROCHLORPERAZINE 10 MG/2 ML VIAL. IV PRN (08:16)
[2020-06-26] MEDS: ALPRAZolam 0.5 MG TABLET PO PRN (08:16)
[2020-06-26] MEDS ORDERED: POTA10TA12 PO (10:20)
--- NOTE | 2020-06-26 10:34 | DS ---
DATE OF DISCHARGE: HOSPITAL COURSE: A 44-year-old female admitted with abdominal pain, nausea, vomiting and unable to take medications orally was admitted for IV antibiotic therapy for diverticulitis. The patient had severe epigastric pain. CT demonstrated diverticulitis. The patient also was noted to have low potassium and as a result of that the patient was given additional potassium supplement. The patient is also a diabetic. She has Charcot foot. The patient made excellent progress during the rest of her hospitalization and continued to be monitored as an outpatient. She also was noted to have some blood in her urine, but CT scan of abdomen and pelvis did not describe anything that might be a reflection of that so that should probably be followed up as an outpatient at some other time. IMPRESSION: Diverticulitis, hypokalemia, hematuria, type 2 diabetes, and Charcot's joint. PLAN: The patient will be discharged home. Continue her metronidazole. See MRAD. Diabetic diet. PARMINDER ANTON MD DR: ARI/ursula JOB#: [id number] / [id number]
[2020-06-26 11:01] VITALS: BP 117/80
[2020-06-26] MEDS ORDERED: metroNIDAZOLE 500 MG TABLET PO SCH (14:00)
[2020-06-26] MEDS ORDERED: levoFLOXacin 500 MG TABLET PO SCH (21:00)
== END 2020-06-26 12:30 | disposition home or self-care (01) | DRG 392 ==
LOC: ER 23:54 → 1 SOUTH 06-24 02:21
PROVIDERS: ADMIT Family Medicine; ATTEND Family Medicine
DX: K57.32 Diverticulitis of large intestine without perforation or abscess without bleeding (principal); E86.0 Dehydration; E87.6 Hypokalemia; R31.9 Hematuria, unspecified; E11.610 Type 2 diabetes mellitus with diabetic neuropathic arthropathy; I10 Essential (primary) hypertension; J84.10 Pulmonary fibrosis, unspecified; Z90.49 Acquired absence of other specified parts of digestive tract; Z88.8 Allergy status to other drugs, medicaments and biological substances
CPT/HCPCS: 36415; 74176; 80048; 80053; 81001; 82947; 83690; 84703; 85007; 85025; 96360; 96361; 96365; 96368; 96375; J0780; J1815; J1956; J2270; J2405; J2543; J2765; J3480; J3490; 99285-25; J7030

== ENCOUNTER 2021-09-20 10:42 | Emergency (ER) | payer BC ==
[~2021-09-20] VITALS: Ht 182.9 cm; Wt 86.0 kg
[~2021-09-20 10:42] MED LIST changes: +LISI10TA16 PO; -LISI10TA2 PO; +POTA-116 PO
[2021-09-20] MEDS ORDERED: IV NORMAL SALINE 1,000ML 1,000 ML IV ONE (11:00)
[2021-09-20] MEDS ORDERED: MECLIZINE 12.5 MG TABLET. PO ONE (11:00)
[2021-09-20 11:09] VITALS: BP 152/90
--- NOTE | 2021-09-20 11:13 | PHYS DOC ---
Past History Past Medical History: Diabetes, Hypertension (ELIZABETH MCKEON APRN) Past Surgical History: Cholecystectomy, Other (ELIZABETH MCKEON APRN) Alcohol Use: None Drug Use: None (ELIZABETH MCKEON APRN) General Adult EDM: Chief Complaint: SYNCOPE HPI: HPI: Patient is a 46-year-old female who presents to the emergency department for near syncope. She reports that she had a syncopal episode last night when she was getting up to go to the bathroom. She reports that she was at work. 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 She states that the symptoms quickly resolved. She states that she is a type II diabetic and takes insulin as needed. EMS reports that her blood sugar was 300. Patient denies any symptoms currently. She denies dizziness, headache, vision changes, nausea, vomiting, chest pain, shortness of breath. (ELIZABETH MCKEON APRN) Review of Systems: Review of Systems: Eyes: See HPI HENT: See HPI Respiratory: See HPI Cardiovascular: See HPI GI: See HPI Neurologic: See HPI (ELIZABETH MCKEON APRN) Current Medications: Current Meds: Current Medications Medications (Trade) Dose Ordered Sig/[place] Start Time Stop Time Status Last Admin Dose Admin Meclizine HCl (Antivert) 25 mg 1X ONCE 09/20/21 11:00 09/20/21 11:01 UNV Sodium Chloride 1,000 ml @ 1,000 mls/hr 1X ONCE 09/20/21 11:00 09/20/21 11:59 (ELIZABETH MCKEON APRN) Allergies: Allergies: Allergies Coded Allergies Type Severity Reaction Last Updated Verified iodine Allergy Severe 06/24/20 Yes (ELIZABETH MCKEON APRN) Physical Exam: PE: Constitutional: Well developed, well nourished, no acute distress, non-toxic appearance. [] HENT: Normocephalic, atraumatic, bilateral external ears normal, oropharynx moist, no oral exudates, nose normal. [] Eyes: PERRL, 4 mm pupils bilaterally,, EOMI, conjunctiva normal, no discharge, patient reports that horizontal eye movements make her feel "uncomfortable".. [] Neck: Normal range of motion, no tenderness, supple, no stridor. [] Cardiovascular:Heart rate regular rhythm, no murmur [] Lungs & Thorax: Bilateral breath sounds clear to auscultation [] Abdomen: Bowel sounds normal, soft, no tenderness, no masses, no pulsatile masses. [] Skin: Warm, dry, no erythema, no rash. [] Back: Normal range of motion Extremities: No tenderness, no cyanosis, no clubbing, ROM intact, no edema. [] Neurologic: Alert and oriented X 3, normal motor function, normal sensory function, no focal deficits noted negative pronator drift, negative for limb ataxia, normal speech, patient reports that horizontal head movements make her "uncomfortable". [] Psychologic: Affect normal, judgement normal, mood normal. [] (ELIZABETH MCKEON APRN) Current Patient Data: Labs: Laboratory Tests Test 09/20/21 10:59 Glucose (Fingerstick) 336 mg/dL (70-99) H Laboratory Tests Test 09/20/21 10:59 09/20/21 11:00 09/20/21 11:25 Glucose (Fingerstick) 336 mg/dL White Blood Count 7.9 x10^3/uL Red Blood Count 4.54 x10^6/uL Hemoglobin 13.6 g/dL Hematocrit 39.6 % Mean Corpuscular Volume 87 fL Mean Corpuscular Hemoglobin 30 pg Mean Corpuscular Hemoglobin Concent 34 g/dL Red Cell Distribution Width 12.7 % Platelet Count 227 x10^3/uL Neutrophils (%) (Auto) 66 % Lymphocytes (%) (Auto) 26 % Monocytes (%) (Auto) 6 % Eosinophils (%) (Auto) 1 % Basophils (%) (Auto) 1 % Neutrophils # (Auto) 5.2 x10^3uL Lymphocytes # (Auto) 2.0 x10^3/uL Monocytes # (Auto) 0.5 x10^3/uL Eosinophils # (Auto) 0.1 x10^3/uL Basophils # (Auto) 0.0 x10^3/uL Sodium Level 137 mmol/L Potassium Level 4.2 mmol/L Chloride Level 100 mmol/L Carbon Dioxide Level 27 mmol/L Anion Gap 10 Blood Urea Nitrogen 21 mg/dL Creatinine 0.6 mg/dL Estimated GFR (Cockcroft-Gault) 107.6 BUN/Creatinine Ratio 35 Glucose Level 334 mg/dL Calcium Level 9.0 mg/dL Total Bilirubin 0.7 mg/dL Aspartate Amino Transf (AST/SGOT) 10 U/L Alanine Aminotransferase (ALT/SGPT) 25 U/L Alkaline Phosphatase 73 U/L Troponin I Quantitative < 0.017 ng/mL Total Protein 6.9 g/dL Albumin 3.6 g/dL Albumin/Globulin Ratio 1.1 Urine Collection Type Unknown Urine Color Yellow Urine Clarity Clear Urine pH 5.0 Urine Specific [place] 1.020 Urine Protein Neg Urine Glucose (UA) >=1000 mg/dL Urine Ketones (Stick) Trace mg/dL Urine Blood Small Urine Nitrite Neg Urine Bilirubin Neg Urine Urobilinogen Dipstick 0.2 mg/dL Urine Leukocyte Esterase Neg Urine RBC Occ /HPF Urine WBC Occ /HPF Urine Squamous Epithelial Cells Few /LPF Urine Bacteria 0 /HPF Current Medications Medications (Trade) Dose Ordered Sig/[place] Route PRN Reason Start Time Stop Time Status Last Admin Dose Admin Sodium Chloride 1,000 ml @ 1,000 mls/hr 1X ONCE IV 09/20/21 11:00 09/20/21 11:59 DC 09/20/21 11:26 Meclizine HCl (Antivert) 25 mg 1X ONCE PO 09/20/21 11:00 09/20/21 11:08 DC 09/20/21 11:28 (ELIZABETH MCKEON APRN) EKG: EKG: [] EKG performed by ER staff at 1111 shows sinus rhythm with a rate of 94, QTc 453, no STEMI read by Dr. Luong at 1116 (ELIZABETH MCKEON APRN) Radiology/Procedures: Radiology/Procedures: []PROCEDURE: PORTABLE CHEST 1V EXAM: Chest, single view. HISTORY: Syncope. COMPARISON: 05/30/2020 FINDINGS: A frontal view of the chest is obtained. There is no infiltrate, pleural effusion or pneumothorax. The heart is normal in size. IMPRESSION: No acute pulmonary finding. Electronically signed by: Gianna Cifuentes MD (09/20/2021 11:54 AM) [id number] DICTATED AND SIGNED BY: GIANNA CIFUENTES MD DATE: 09/20/21 1158 CC: PARMINDER ANTON MD; EMERGENCY,DEPARTMENT; ELIZABETH MCKEON APRN ~MTH0 0 (ELIZABETH MCKEON APRN) Heart Score: C/O Chest Pain: No Risk Factors: Risk Factors: DM, Current or recent (<one month) smoker, HTN, HLP, family history of CAD, obesity. Risk Scores: Score 0 - 3: 2.5% MACE over next 6 weeks - Discharge Home Score 4 - 6: 20.3% MACE over next 6 weeks - Admit for Clinical Observation Score 7 - 10: 72.7% MACE over next 6 weeks - Early Invasive Strategies (ELIZABETH MCKEON APRN) Course & Med Decision Making: Course & Med Decision Making Pertinent Labs and Imaging studies reviewed. (See chart for details) Patient presents to the emergency department for near syncope. Work-up in the ER consisted of blood work, EKG, chest x-ray, urinalysis. Patient was treated with a liter of normal saline. Patient was also treated with Antivert. She states that following treatment she does not have any dizziness. Due to patient experiencing pressure feeling in her ears, and uncomfortable sensation with eye movement or head movement, it is likely that patient is experiencing vertigo symptoms. Patient be discharged home with Antivert to take at home and advised to increase her fluids. Patient advised to follow-up with her primary care provider at Dr. Beltrán's office. Advised to continue to monitor her blood sugars at home and take her insulin as instructed. I discussed with patient all findings and diagnostic testing as well as the need to follow-up with PCP for further evaluation and treatment or return to the ER if any new or worsening symptoms. Strict return precautions were also discussed at length. Patient voiced understanding and agreement with the plan. Patient is hemodynamically stable at the time of disposition. (ELIZABETH MCKEON APRN) Dragon Disclaimer: Dragon Disclaimer: This electronic medical record was generated, in whole or in part, using a voice recognition dictation system. (ELIZABETH MCKEON APRN) Attending Co-Sign The patient was seen and interviewed as well as examined at the bedside. The chart was reviewed. The case was discussed. Agree with the plan of care. (MARK LUONG DO) Departure Departure: Impression: Primary Impression: Vertigo Disposition: 01 HOME / SELF CARE / HOMELESS Condition: GOOD Referrals: PARMINDER ANTON MD (PCP) Patient Instructions: Vertigo Additional Instructions: You are seen in the emergency department for near syncope. Your work-up in the ER was unremarkable. It is likely that you are experiencing vertigo as you reported improvement in your symptoms following treatment. Dehydration is a common cause of dizziness also which was treated with IV fluids. At home he can take Antivert as directed. Make sure that you are increasing your fluid intake. Continue to monitor your blood sugars at home and take your insulin as directed. Follow-up with your primary care provider tomorrow regarding your ER visit. Please return to the emergency department if you develop syncope, vision changes, intractable nausea or vomiting, chest pain, shortness of breath, falls. EMERGENCY DEPARTMENT GENERAL DISCHARGE INSTRUCTIONS Thank you for coming to [facility] (ED) today and trusting us with you care. We trust that you had a positivie experience in our Emergency Department. If you wish to speak to the department management, you may call the director at [phone]. YOUR FOLLOW UP INSTRUCTIONS ARE FOLLOWS: 1. Do you have a private Doctor? If you do not have a private doctor, please ask for a resource list of physicians or clinics that may be able to assist you with follow up care. 2. The Emergency Physician has interpreted your x-rays. The X-Ray specialist will also review them. If there is a change in the findings, you will be notified in 48 hours when at all possible. 3. A lab test or culture has been done, your results will be reviewed and you will be notified if you need a change in treatment. ADDITIONAL INSTRUCTIONS AND INFORMATION: 1. Your care today has been supervised by a physician who is specially trained in emergency care. Many problems require more than one evaluation for a complete diagnosis and treatment. We recommend that you schedule your follow up appointment as recommended to ensure complete treatment of you illness or injury. If you are unable to obtain follow up care and continue to have a problem, or if your condition worsens, we recommend that you return to the ED. 2. We are not able to safely determine your condition over the phone nor are we able to give sound medical advice over the phone. For these safety reasons, if you call for medical advice we will ask you to come to the ED for further evaluation. 3. If you have any questions regarding these discharge instructions please call the ED at [phone]. SAFETY INFORMATION: In the interest of safety, wellness, and injury prevention; we encourage you to wear your sealbelt, if you smoke; quite smoking, and we encourage family to use a protective helmet for bicycling and other sporting events that present an increased risk for head injury. IF YOUR SYMPTOMS WORSEN OR NEW SYMPTOMS DEVELOP, OR YOU HAVE CONCERNS ABOUT YOUR CONDITION; OR IF YOUR CONDITION WORSENS WHILE YOU ARE WAITING FOR YOUR FOLLOW UP APPOINTMENT; EITHER CONTACT YOUR PRIMARY CARE DOCTOR, THE PHYSICIAN WHOSE NAME AND NUMBER YOU WERE GIVEN, OR RETURN TO THE ED IMMEDIATELY. Scripts Meclizine Hcl (MEDI-MECLIZINE) 25 Mg Tablet 25 MG PO BID for dizziness for 2 Days, #4 TAB 0 Refills Prov: ELIZABETH MCKEON APRN 09/20/21 ELIZABETH MCKEON APRN Sep 20, 2021 11:13 MARK LUONG DO Sep 20, 2021 17:22
[2021-09-20 11:21] LABS: BASO % 1 % (0-3); EOS # 0.1 x10^3/uL (0.0-0.7); EOS % 1 % (0-3); HEMATOCRIT 39.6 % (36.0-47.0); HEMOGLOBIN 13.6 g/dL (12.0-15.5); LYMPH % 26 % (24-48); MEAN CORPUSCULAR HEMOGLOBIN 30 pg (25-35); MEAN CORPUSCULAR HGB CONC 34 g/dL (31-37); MEAN CORPUSCULAR VOLUME 87 fL (79-100); MONO # 0.5 x10^3/uL (0.0-1.1); MONO % 6 % (0-9); NEUT # 5.2 x10^3uL (1.8-7.7); NEUT % 66 % (31-73); PLATELET COUNT 227 x10^3/uL (140-400); RED BLOOD COUNT 4.54 x10^6/uL (3.50-5.40); RED CELL DISTRIBUTION WIDTH 12.7 % (11.5-14.5); WHITE BLOOD COUNT 7.9 x10^3/uL (4.0-11.0)
[2021-09-20 11:30] LABS: CREATININE 0.6 mg/dL (0.6-1.0); GFR 107.6; POTASSIUM 4.2 mmol/L (3.5-5.1)
[2021-09-20 11:36] LABS: ALBUMIN 3.6 g/dL (3.4-5.0); ALBUMIN/GLOBULIN RATIO 1.1 (1.0-1.7); TOTAL BILIRUBIN 0.7 mg/dL (0.2-1.0); TOTAL PROTEIN 6.9 g/dL (6.4-8.2)
--- NOTE | 2021-09-20 11:57 | RAD ---
EXAM: Chest, single view. HISTORY: Syncope. COMPARISON: 05/30/2020 FINDINGS: A frontal view of the chest is obtained. There is no infiltrate, pleural effusion or pneumo thorax. The heart is normal in size. IMPRESSION: No acute pulmonary finding. Electronically signed by: Gianna Caldwell MD (09/20/2021 11:54 AM) [id number]
[2021-09-20 12:07] LABS: BACTERIA,URINE 0 /HPF (0-FEW); BILIRUBIN,URINE NEG (NEG); CLARITY,URINE CLEAR; COLOR,URINE YELLOW; GLUCOSE,URINE >=1000 mg/dL (NEG); NITRITE,URINE NEG (NEG); SQUAMOUS EPITHELIAL CELL,UR FEW /LPF; UROBILINOGEN,URINE 0.2 mg/dL (0.2 mg/dL); WBC,URINE OCC /HPF (0-4)
[2021-09-20 12:08] LABS: RBC,URINE OCC /HPF (0-2)
[2021-09-20] MEDS ORDERED: MECL25TA PO (12:37)
--- NOTE | 2021-09-20 13:17 | EKG ---
[address] [address] Test Date: 2021-09-20 Test Time: 11:11:02 Pat Name: LATONIA ESPARZA Department: Room: Gender: F Flame Gouger: DARIUS : 1975 Requested By: ELIZABETH MCKEON Order Number: [id number] Reading MD: Benjamin Camacho Measurements Intervals [place] Rate: 94 P: 11 RI: 154 QRS: 62 QRSD: 94 T: 76 QT: 358 QTc: 453 Interpretive Statements SINUS RHYTHM Electronically Signed On 09-20-2021 15:54:19 CDT by Benjamin Camacho
== END 2021-09-20 12:52 | disposition home or self-care (01) ==
LOC: ER 10:42
DX: R42 Dizziness and giddiness (principal); R55 Syncope and collapse; E11.9 Type 2 diabetes mellitus without complications; I10 Essential (primary) hypertension; Z90.49 Acquired absence of other specified parts of digestive tract; Z88.8 Allergy status to other drugs, medicaments and biological substances
CPT/HCPCS: 36415; 71045; 80053; 81001; 82947; 84484; 85025; 93005; 96360; 99285; J7030